=== PATIENT | female | born 1970 | race African-American/Black ===

== ENCOUNTER 2016-05-18 10:37 | Emergency (ER) | payer MEDICAID, OTHER ==
[~2016-05-18] VITALS: Ht 157.5 cm; Wt 85.0 kg
[~2016-05-18 10:37] MED LIST: BACL20TA PO; CYPR4 PO; FERR324T4 PO; LISI-363 PO; TRAM50 PO
[2016-05-18 10:38] VITALS: BP 157/90; PULSE 100; RESP 16; TEMP 98.1; O2SAT 95
[2016-05-18] MEDS ORDERED: CYCL1TAB29 PO (11:04)
[2016-05-18] MEDS ORDERED: FERR1TAB36 PO (11:04)
--- NOTE | 2016-05-18 11:09 | PD ---
HPI Chief Complaint: ENT Complaint Time Seen by Provider: 11:09 Travel History International Travel<30 days: No Contact w/Intl Traveler<30days: No Traveled to known affect area: No History of Present Illness HPI 46-year-old female presents emergency Department with complaint of worsening sore throat and right ear pain 3 days. She has been sick with subjective fever , body aches, nasal congestion for the last 3-4 days and was seen in [place] emergency room yesterday and diagnosed with influenza. She was given a prescription for Tamiflu but she could not afford to fill it. She woke up this morning with a burning sore throat. Denies lump in throat, difficulty swallowing, unusual drooling. Reports painful swallowing. Has tried TheraFlu with no relief of symptoms. Denies chest pain, shortness of breath, abdominal pain, nausea, vomiting. Other sick family have been sick with similar symptoms. Allergic to penicillin. History of hypertension but does not currently take medications. No other modifying factors or associated signs and symptoms. PFSH Past Medical History Anemia: Yes Diminished Hearing: No ?: Not Menopausal: No : 3 Para: 2 Miscarriage: 1 Past Surgical History Section: Yes ( x 2 ) Hysterectomy: Yes Social History Alcohol Use: No Tobacco Use: No Substance Use: No Allergies-Medications (Allergen,Severity, Reaction): Coded Allergies: Penicillin (Verified Allergy, Intermediate, Rash, 05/18/16) Reported Meds & Prescriptions Reported Meds & Active Scripts Active Nasonex Nasal [place] (Mometasone Furoate) 50 Mcg/Act Naspr 2 [place] EACH NARE DAILY PRN Ibuprofen 800 Mg Tab 800 Mg PO Q6HR PRN Magic Mouthwash Adult Liq (Multi-Ingredient Mouthwash/Gargle) 120 Ml Susp 5 Ml SWISH-SPIT Q3HR NEB PRN Each 5mL contains: Nystatin 200,000units, Diphenhydramine 4.25mg, Viscous Lidocaine 10mg, Rice syrup 0.8 mL Reported Iron (Ferrous Sulfate) 325 Mg Tab Unknown Dose PO DAILY Take Flexeril (Cyclobenzaprine HCl) 10 Mg Tab Unknown Dose PO TID Review of Systems Except as stated in HPI: all other systems reviewed are Neg Physical Exam Narrative GENERAL: Well-nourished, well-developed female patient, in no acute distress SKIN: Warm and dry. No rash. HEAD: Atraumatic. Normocephalic. EYES: Pupils equal and round at 3 mm with brisk reaction. No scleral icterus. No injection or drainage. PERRLA. ENT: Mucosa pink and moist. Oropharynx with erythema; without edema or exudates. No uvular edema. No uvular, palatal, or tonsillar deviation. Airway patent. EARS: Bilateral pinnae and external canals appear within normal limits. Bilateral tympanic membranes without erythema, dullness or perforation; bulging bilaterally. NECK: Trachea midline. No anterior cervical lymphadenopathy; with tenderness on palpation. CARDIOVASCULAR: Regular rate and rhythm. No murmur appreciated. RESPIRATORY: No accessory muscle use. Clear to auscultation. Breath sounds equal bilaterally. GASTROINTESTINAL: Abdomen soft, non-tender, nondistended. Hepatic and splenic margins not palpable. Bowel sounds are active 4 quadrants. MUSCULOSKELETAL: No obvious deformities. No clubbing. No cyanosis. No edema. NEUROLOGICAL: Awake and alert. Oriented 3. No obvious cranial nerve deficits. Motor grossly within normal limits. Normal speech. Moves all extremities. 5/5 strength to all extremities. PSYCHIATRIC: Appropriate mood and affect; insight and judgment normal. Data Data Last Documented VS Vital Signs Date Time Temp Pulse Resp B/P Pulse Ox O2 Delivery O2 Flow Rate FiO2 05/18/16 10:38 98.1 100 16 157/90 95 Room Air Orders Group A Rapid Strep Screen (05/18/16 11:09) Strep Culture (Group A) (05/18/16 11:10) [facility] Medical Decision Making Medical Screen Exam Complete: Yes Emergency Medical Condition: Yes Medical Record Reviewed: Yes Differential Diagnosis Influenza, strep pharyngitis, viral pharyngitis, less likely peritonsillar abscess Narrative Course 46-year-old female that was diagnosed with influenza yesterday at an emergency room in [place] presents with complaint of sore throat and right ear pain. She was unable to fill her prescription for Tamiflu secondary to financial reasons. Right ear is without signs of infection. Oropharynx is erythematous. She denies lump in throat, unusual drooling, difficulty swallowing. She reports subjective fever but cannot report a MAXIMUM TEMPERATURE. Afebrile and nontoxic appearing in the ER. Rapid strep ordered. 1135: Rapid strep negative. Tylenol administered in the ER. Magic mouthwash and ibuprofen prescribed for home. Patient is medically cleared and stable for discharge. Discussed reasons to return to the emergency department. Instructed patient to follow up with primary care provider. Patient agrees with treatment plan. The patients vital signs are stable and the patient is stable for outpatient follow-up and treatment. Patient discharged home, stable and in no acute distress. Diagnosis Primary Impression: Viral pharyngitis Referrals: Primary Care Physician Patient Instructions: General Instructions, Pharyngitis (ED) Departure Forms: Tests/Procedures, Work Release Special Instructions: May return to work when fever is less than 100.4 for 24 hours Additional Instructions: Get plenty of sleep/rest Rest your voice Drink plenty of fluids to prevent dehydration Use warm saltwater gargles to soothe throat pain Use an air humidifier/turn off ceiling fans Use throat lozenges as needed for sore throat Use ibuprofen or acetaminophen as needed to relieve pain and fever Follow-up with your primary care provider Return immediately to the emergency department Med/Other Pt SpecificInfo: Prescription(s) given Scripts Mometasone Nasal [place] (Nasonex Nasal [place])50 Mcg/Act Naspr2 [place] EACH NARE DAILY PRN (NASAL CONGESTION) #1 BOTTLE Ref 0 Prov:China Flynn 05/18/16 Ibuprofen 800 Mg [id number] Mg PO Q6HR PRN (PAIN) #30 TAB Ref 0 Prov:China Flynn 05/18/16 Dcuolbsv-Ecizynmnckawvbq-Ldujyvbxx Liq (Magic Mouthwash Adult Liq)120 Ml Susp5 Ml SWISH-SPIT Q3HR NEB PRN (SORE THROAT) #120 ML Ref 0 Each 5mL contains: Nystatin 200,000units, Diphenhydramine 4.25mg, Viscous Lidocaine 10mg, Rice syrup 0.8 mL Prov:China Flynn 05/18/16 Disposition: 01 DISCHARGE HOME Condition: Stable China Flynn May 18, 2016 11:09
[2016-05-18] MEDS ORDERED: IBUP800T23 PO (11:23)
[2016-05-18] MEDS ORDERED: MOME17I EACH NARE (11:23)
[2016-05-18] MEDS ORDERED: MAGICADU2 SWISH-SPIT (11:23)
[2016-05-18] MEDS ORDERED: ACETAMINOPHEN 325 MG TAB PO ONE (11:45)
== END 2016-05-18 11:47 | disposition home or self-care (01) ==
LOC: NEPB 10:37
DX: J02.8 Acute pharyngitis due to other specified organisms (principal)
CPT/HCPCS: 87081; 87880; 99283

== ENCOUNTER 2016-08-27 13:36 | Emergency (ER) | payer MEDICAID, OTHER ==
[~2016-08-27] VITALS: Ht 157.5 cm; Wt 83.0 kg
[~2016-08-27 13:36] MED LIST changes: -BACL20TA PO; +CYCL1TAB29 PO; -CYPR4 PO; +FERR1TAB36 PO; -FERR324T4 PO; +IBUP800T23 PO; -LISI-363 PO; +MAGICADU2 SWISH-SPIT; +MOME17I EACH NARE; -TRAM50 PO
[2016-08-27 13:37] VITALS: BP 126/75; PULSE 81; RESP 14; TEMP 98.4; O2SAT 99
--- NOTE | 2016-08-27 13:41 | PD ---
Physical Exam Time Seen by Provider: 13:41 Narrative 46yo F c/o BUE numbness and tingling only when she sleeps at night [id number]. VS reviewed. Patient seen in triage. Awaiting bed placement. Data Data Last Documented VS Vital Signs Date Time Temp Pulse Resp B/P Pulse Ox O2 Delivery O2 Flow Rate FiO2 08/27/16 13:37 98.4 81 14 126/75 99 MDM Supervised Visit with JAMISON: China Calderón August 27, 2016 13:41
[2016-08-27] MEDS ORDERED: HYDR-3366 PO (14:44)
[2016-08-27] MEDS ORDERED: CLIN1CAP6 PO (14:44)
[2016-08-27] MEDS ORDERED: HYDR50TA94 PO (14:45)
[2016-08-27] MEDS ORDERED: AMLO5TAB2 PO (14:48)
--- NOTE | 2016-08-27 14:50 | PD ---
HPI Chief Complaint: Numbness/Tingling Time Seen by Provider: 14:03 Travel History International Travel<30 days: No Contact w/Intl Traveler<30days: No Traveled to known affect area: No History of Present Illness HPI 46-year-old female came to the emergency room with history of unable to sleep through the night more than 20 minutes at a time for past 9 days. She has also been experiencing bilateral upper extremity tingling and numbness when she goes to bed. This wakes her up. She says she has to keep shaking her arms to get the sensation back. She says her fingertips get numb bilaterally. She has history of lower back pain and is on hydrocodone. Vital signs were otherwise stable. Denies any neck pain. [facility] Past Medical History Narrative Medical List of her past medical, surgical, social and family history was reviewed from the nursing note. Anemia: Yes Diminished Hearing: No ?: Not Menopausal: No : 3 Para: 2 Miscarriage: 1 Past Surgical History Section: Yes ( x 2 ) Hysterectomy: Yes Social History Alcohol Use: No Tobacco Use: No Substance Use: No Allergies-Medications (Allergen,Severity, Reaction): Coded Allergies: Penicillin (Verified Allergy, Intermediate, Rash, 08/27/16) Comments List of her allergies reviewed from the nursing note. Reported Meds & Prescriptions Reported Meds & Active Scripts Active Reported Amlodipine (Amlodipine Besylate) 5 Mg Tab 5 Mg PO DAILY Hydroxyzine HCl 50 Mg Tab 50 Mg PO QID PRN Clindamycin (Clindamycin HCl) 300 Mg Cap 300 Mg PO Q6H [place] (Hydrocodone-Acetaminophen) 10-325 Mg Tab 1 Tab PO Q4-6H PRN Narrative Medication List of her home medications reviewed from the nursing note. Review of Systems Except as stated in HPI: all other systems reviewed are Neg Physical Exam Narrative GENERAL: Awake, alert, anxious, mild distress SKIN: Focused skin assessment warm/dry. HEAD: Atraumatic. Normocephalic. EYES: Pupils equal and round. No scleral icterus. No injection or drainage. ENT: No nasal bleeding or discharge. Mucous membranes pink and moist. NECK: Trachea midline. No JVD. CARDIOVASCULAR: Regular rate and rhythm. No murmur appreciated. RESPIRATORY: No accessory muscle use. Clear to auscultation. Breath sounds equal bilaterally. GASTROINTESTINAL: Abdomen soft, non-tender, nondistended. Hepatic and splenic margins not palpable. MUSCULOSKELETAL: No obvious deformities. No clubbing. No cyanosis. No edema. Bilateral distal pulses and sensation present NEUROLOGICAL: Awake and alert. No obvious cranial nerve deficits. Motor grossly within normal limits. Normal speech. PSYCHIATRIC: Appropriate mood and affect; insight and judgment normal. Data Data Last Documented VS Vital Signs Date Time Temp Pulse Resp B/P Pulse Ox O2 Delivery O2 Flow Rate FiO2 08/27/16 14:36 16 98 08/27/16 13:37 98.4 81 126/[address] Cerv Spine W/O Contrast (08/27/16 ) [facility] Medical Decision Making Medical Screen Exam Complete: Yes Emergency Medical Condition: Yes Medical Record Reviewed: Yes Differential Diagnosis Cervical radiculopathy, paresthesia Narrative Course 2:49 PM have ordered a CT scan of the cervical spine to rule out cervical adenopathy. Awaiting for the CT to be done and resulted. Procedures EKG Prior to Arrival: No Diagnosis Primary Impression: Cervical radiculopathy due to degenerative joint disease of spine Referrals: Jaguar John MD 2 days Additional Instructions: Please return to the ER if the condition worsens or any other new concerns. Follow-up with the neurosurgeon whose name and number been provided to you. Try to sleep on a better neck pillow and firm surface. Med/Other Pt SpecificInfo: No Change to Meds Disposition: 01 DISCHARGE HOME Condition: Stable Sylvia Head MD August 27, 2016 14:50
--- NOTE | 2016-08-27 15:58 | RADRPT ---
EXAM DATE/TIME: 08/27/2016 15:06 [facility] COMPARISON: No previous studies available for comparison. INDICATIONS : Bilateral upper extremity numbness when sleeping. RADIATION DOSE: 33.60 CTDIvol (mGy) MEDICAL HISTORY : SURGICAL HISTORY : Hysterectomy. ENCOUNTER: Initial ACUITY: 1 day PAIN SCALE: 0/10 LOCATION: Bilateral neck TECHNIQUE: Volumetric scanning of the cervical spine was performed. Multiplanar reconstructions in the sagittal, coronal and oblique axial planes were performed. Using automated exposure control and adjustment o f the mA and/or kV according to patient size, radiation dose was kept as low as reasonably achievable to obtain optimal diagnostic quality images. FINDINGS: VERTEBRAE: Normal vertebral body height. Prominent degenerative changes from C5-C7. Prominent anterior endplate osteophytes from C4-C7. ALIGNMENT: Minimal retrolisthesis C6 on C7. C2-C3: The bony spinal canal is normal in size. No evidence of disc bulge or herniation. The neural forami na are bilaterally patent. C3-C4: The bony spinal canal is normal in size. No evidence of disc bulge or herniation. The neural forami na are bilaterally patent. C4-C5: The bony spinal canal is normal in size. No evidence of disc bulge or herniation. The neural forami na are bilaterally patent. C5-C6: Broad-based posterior disc osteophyte complex without canal stenosis. Mild bilateral neural foraminal narrowing greater on the left. C6-C7: Minimal retrolisthesis. Broad-based posterior disc osteophyte complex without canal stenosis. Moderat e bilateral neural foraminal narrowing greater on the right. C7-T1: The bony spinal canal is normal in size. No evidence of disc bulge or herniation. The neural forami na are bilaterally patent. CONCLUSION: 1. Degenerative changes without fracture. 2. Minimal retrolisthesis C6-7. 3. Posterior disc osteophyte complex at C5-6 and C6-7 levels. Tk Gross MD on August 27, 2016 at 15:53 Board Certified Radiologist. This report was verified electronically.
== END 2016-08-27 16:22 | disposition home or self-care (01) ==
LOC: NEPD 13:36
DX: M54.12 Radiculopathy, cervical region (principal)
CPT/HCPCS: 72125

== ENCOUNTER 2017-01-10 03:53 | Emergency (ER) | payer OTHER, MEDICAID ==
[~2017-01-10] VITALS: Ht 157.5 cm; Wt 84.0 kg
[~2017-01-10 03:53] MED LIST changes: +AMLO5TAB2 PO; +CLIN1CAP6 PO; -CYCL1TAB29 PO; -FERR1TAB36 PO; +HYDR-3366 PO; +HYDR50TA94 PO; -IBUP800T23 PO; -MAGICADU2 SWISH-SPIT; -MOME17I EACH NARE
[2017-01-10 03:56] VITALS: BP 168/94; PULSE 83; RESP 14; TEMP 98.5; O2SAT 100
[2017-01-10 04:06] VITALS: BP 174/102; PULSE 88; RESP 20; O2SAT 100
--- NOTE | 2017-01-10 05:02 | RADRPT ---
EXAM DATE/TIME: 01/10/2017 04:12 [facility] COMPARISON: No previous studies available for comparison. INDICATIONS : Trauma, hit head 6 weeks ago. Head pain since. RADIATION DOSE: 56.35 CTDIvol (mGy) MEDICAL HISTORY : Hypertension. SURGICAL HISTORY : None. ENCOUNTER: Initial ACUITY: 2 months PAIN SCALE: 4/10 LOCATION: cranial TECHNIQUE: Multiple contiguous axial images were obtained of the head. Using automated exposure control and adj ustment of the mA and/or kV according to patient size, radiation dose was kept as low as reasonably a chievable to obtain optimal diagnostic quality images. DICOM format image data is available electro nically for review and comparison. FINDINGS: CEREBRUM: The ventricles are normal for age. No evidence of midline shift, mass lesion, hemorrhage or acute in farction. No extra-axial fluid collections are seen. Small cavum septum pellucidum. POSTERIOR FOSSA: The cerebellum and brainstem are intact. The 4th ventricle is midline. The cerebellopontine angle i s unremarkable. EXTRACRANIAL: The visualized portion of the orbits is intact. SKULL: The calvaria is intact. No evidence of skull fracture. Unerupted wisdom teeth project into the maxi llary sinuses bilaterally. CONCLUSION: No acute findings. Negative exam. Escobar Johnson MD on January 10, 2017 at 4:56 Board Certified Radiologist. This report was verified electronically.
[2017-01-10] MEDS ORDERED: BUTA1CAP PO (05:10)
--- NOTE | 2017-01-10 05:10 | PD ---
HPI Chief Complaint: Headache Time Seen by Provider: 04:08 Travel History International Travel<30 days: No Contact w/Intl Traveler<30days: No Traveled to known affect area: No History of Present Illness HPI The patient is a 46-year-old [place] female who presents to the emergency department for headache. The patient states she banged the top of her head on a metal shelf 5 weeks ago and fell to the ground, possibly resulting in a loss of consciousness. The patient states she reported the incident to her employer, try to be evaluated at urgent care, however, they told her she would have to come to the emergency department. The patient states the accident occurred 5 weeks ago, however, she has intermittent headaches as well as dizziness and pain over the top of the head. She denies any photophobia, vision changes, nausea, vomiting, or focal deficits. Symptoms are moderate, slightly improved with ibuprofen at home, and intermittent. The patient does not have a primary physician. PFSH Past Medical History Anemia: Yes Cardiovascular Problems: Yes (HTN) Diminished Hearing: No ?: Not Menopausal: No : 3 Para: 2 Miscarriage: 1 Past Surgical History Section: Yes ( x 2 ) Hysterectomy: Yes Social History Alcohol Use: Yes (OCC) Tobacco Use: No Substance Use: No Allergies-Medications (Allergen,Severity, Reaction): Coded Allergies: penicillin G (Unverified Allergy, Intermediate, Rash, 01/10/17) Reported Meds & Prescriptions Reported Meds & Active Scripts Active Review of Systems Except as stated in HPI: all other systems reviewed are Neg Eyes: No: Blurred Vision, Photophobia, Visual changes HENT: Positive: Headaches, No: Neck Pain Cardiovascular: No: Chest Pain or Discomfort Respiratory: No: Shortness of Breath Gastrointestinal: No: Nausea, Vomiting Neurologic: Positive: Headache, No: Focal Abnormalities Physical Exam Narrative GENERAL: Awake, alert, nontoxic-appearing 46-year-old female who appears her stated age and is in no acute respiratory distress. SKIN: Focused skin assessment warm/dry. HEAD: Atraumatic. Normocephalic. No visible hematoma. EYES: Pupils equal and round. Pupils are 4 mm bilateral and reactive. EOMs are intact. ENT: No nasal bleeding or discharge. Mucous membranes pink and moist. NECK: Trachea midline. No JVD. No tenderness of the cervical vertebrae. MUSCULOSKELETAL: No obvious deformities. No clubbing. No cyanosis. No edema. NEUROLOGICAL: Awake and alert. No obvious cranial nerve deficits. Motor grossly within normal limits. Normal speech. Nonfocal. Oriented 4. Follows commands without difficulty. PSYCHIATRIC: Appropriate mood and affect; insight and judgment normal. Data Data Last Documented VS Vital Signs Date Time Temp Pulse Resp B/P (MAP) Pulse Ox O2 Delivery O2 Flow Rate FiO2 01/10/17 04:08 Room Air 01/10/17 04:06 88 20 174/102 (126) 100 01/10/17 03:[address] Brain W/O Iv Contrast(Rout) (01/10/17 ) Kcpq-Iaxkp-Miyr 325-50-40 Mg (Fioricet 3 (01/10/17 05:15) [facility] Medical Decision Making Medical Screen Exam Complete: Yes Emergency Medical Condition: Yes Medical Record Reviewed: Yes Interpretation(s) CT the head reveals no acute findings. Negative exam. Differential Diagnosis Differential diagnosis includes closed head injury, postconcussive syndrome, subdural hemorrhage, intracranial hemorrhage, subarachnoid hemorrhage. Narrative Course CT the brain was obtained, was negative. There is no evidence of subdural hemorrhage. Most likely the patient is suffering from postconcussive syndrome. 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 Diagnosis Primary Impression: Postconcussive syndrome Patient Instructions: General Instructions Additional Instructions: Follow-up with your Worker's Compensation physician. Fioricet as needed. Ibuprofen as needed. Med/Other Pt SpecificInfo: Prescription(s) given Scripts Aatwwppkew-Lazszcovukrbw-Kqlixxsj (Fioricet) 50-300-40 Mg Cap 1 CAP PO Q4H Y for HEADACHE, #15 CAP 0 Refills Prov: Stephen Nova MD 01/10/17 Disposition: 01 DISCHARGE HOME Condition: Stable Stephen Nova MD Jan 10, 2017 05:10
[2017-01-10] MEDS ORDERED: ACETAMIN 325 MG/BUTALBITAL 50 MG/CAFFEINE 40 MG TAB PO ONE (05:15)
== END 2017-01-10 05:25 | disposition home or self-care (01) ==
LOC: NEPE 03:53
DX: F07.81 Postconcussional syndrome (principal)
CPT/HCPCS: 70450; 99285